=== PATIENT | male | born 1930 | race Caucasian/White ===

== ENCOUNTER → 2016-10-21 | Outpatient (CLI) | payer OTHER, BC ==
--- NOTE | 2016-10-21 11:36 | EKG ---
[address] [address] Measurements Intervals [place] Rate: 65 P: 57 TX: 176 QRS: 18 QRSD: 105 T: -3 QT: 393 QTc: 404 Interpretive Statements SINUS RHYTHM Compared to ECG 08/14/2015 10:13:06 Sinus bradycardia no longer present Electronically Signed On 10-21-16 13:50:47 MDT by Alan [email or web address]
[2016-10-21 12:38] LABS: HEMOGLOBIN 14.5 g/dL (14.0-18.0); MEAN CORPUSCULAR HGB CONC 33.7 g/dL (33-37); MEAN CORPUSCULAR VOLUME 91.9 FL (80-90); MEAN PLATELET VOLUME 9.5 FL (7.4-12.2); RED BLOOD COUNT 4.68 10^6/uL (4.70-6.10)
[2016-10-21 12:43] LABS: BUN/CREATININE RATIO 11.66 (6-20); CALCIUM 9.3 mg/dL (8.7-10.7)
== END ==
LOC: MOB EKG 11:23
PROVIDERS: ATTEND Nurse Practitioner Family
DX: H26.9 Unspecified cataract (principal); I10 Essential (primary) hypertension; I25.10 Atherosclerotic heart disease of native coronary artery without angina pectoris
CPT/HCPCS: 36415; 80048; 85027; 93005; 93010